=== PATIENT | female | born 1960 | race Hispanic/Latino ===

== ENCOUNTER → 2017-10-15 | Outpatient (CLI) | payer BC | END | disposition home or self-care (01) | LOC: RAH 16:00 | PROVIDERS: ATTEND Family Medicine | DX: I82.491 Acute embolism and thrombosis of other specified deep vein of right lower extremity (principal) | CPT/HCPCS: 93971 ==

== ENCOUNTER 2017-11-20 23:40 | Emergency (ER) | payer BC ==
[2017-11-21 00:30] LABS: EOSINOPHILS % (AUTO) 3.6 % (0.0-8.0); HEMATOCRIT 40.7 % (36-48); LYMPHOCYTES % (AUTO) 20.6 % (21.0-51.0); MEAN CORPUSCULAR HGB CONC 33.6 g/dL (32.0-36.0); MEAN CORPUSCULAR VOLUME 92.3 fL (79-99); MONOCYTES % (AUTO) 5.4 % (3.0-13.0); NEUTROPHILS % (AUTO) 69.4 % (40.0-77.0); PLATELET COUNT (AUTO) 249 K/uL (130-400); RED BLOOD CELL COUNT(AUTO) 4.41 MIL/uL (4.00-5.50); RED CELL DISTRIBUTION WIDTH 13.5 % (11.0-15.5); WHITE BLOOD COUNT (AUTO) 9.6 K/uL (4.8-10.8)
[2017-11-21 00:44] LABS: CREATININE 2.1 mg/dL (0.5-1.5); POTASSIUM 3.3 mmol/L (3.5-5.1)
[2017-11-21 00:48] LABS: ALBUMIN 3.6 g/dL (3.5-5.0); BILIRUBIN,TOTAL 0.2 mg/dL (0.2-1.0); TOTAL PROTEIN, SERUM 8.2 g/dL (6.0-8.3)
[2017-11-21] MEDS ORDERED: VANCOMYCIN 1GM+NS 250ML 250 ML IV ONE (01:27)
[2017-11-21] MEDS ORDERED: MORPHINE SULFATE 2 MG/ML 1ML SYG ONE ×2 (01:28→03:58)
== END 2017-11-21 05:07 | disposition home or self-care (01) ==
LOC: EDH 23:40
DX: L03.116 Cellulitis of left lower limb (principal); R50.9 Fever, unspecified; E11.9 Type 2 diabetes mellitus without complications; I12.9 Hypertensive chronic kidney disease with stage 1 through stage 4 chronic kidney disease, or unspecified chronic kidney disease; E11.22 Type 2 diabetes mellitus with diabetic chronic kidney disease; E78.5 Hyperlipidemia, unspecified; N18.9 Chronic kidney disease, unspecified; Z90.49 Acquired absence of other specified parts of digestive tract
CPT/HCPCS: 36415; 80053; 83605; 84550; 85025; 87040; 96365; 96366; 96375; 96376; 99285; J3370

== ENCOUNTER → 2017-11-20 | Outpatient (CLI) | payer BC | LOC: OIH 13:36 | PROVIDERS: ATTEND Family Medicine | DX: L03.116 Cellulitis of left lower limb (principal) | CPT/HCPCS: 73610 ==